=== PATIENT | male | born 1960 | race Caucasian/White ===

== ENCOUNTER 2016-12-28 09:26 | Emergency (ER) | payer OTHER ==
[~2016-12-28] VITALS: Ht 188 cm; Wt 78.8 kg
[2016-12-28 10:02] LABS: HEMATOCRIT 40.7 % (38.0-50.0); MCH 32.7 PG (29.0-34.0); MCHC 34.6 G/DL (30.0-36.0); MCV 94.4 FL (86-99); MEAN PLAT.VOLUME 10.6 uM^3 (9.0-12.4); PLATELET COUNT 218 K/uL (156-360); RBC DIS.WIDTH-CV 12.6 % (11.8-14.6); RED BLOOD COUNT 4.31 M/uL (4.00-5.50); WHITE BLOOD COUNT 9.7 K/uL (4.1-10.2)
[2016-12-28 10:14] LABS: CHLORIDE 101 mEq/L (99-109); POTASSIUM 4.3 mEq/L (3.7-5.4); SODIUM 138 mEq/L (136-147)
[2016-12-28 10:15] LABS: GLUCOSE 92 mg/dL (70-99)
[2016-12-28 10:17] LABS: ANION GAP 12 MEQ/L (2-14)
[2016-12-28 10:20] LABS: GFR ESTIMATE (CALCULATED) > 59 mL/min/; UREA NITROGEN (BUN) 8 mg/dL (9-23)
[2016-12-28 10:54] LABS: TROP-I INTERPRETATION NEGATIVE; TROPONIN-I < 0.01 ng/mL (0.0-0.30)
[2016-12-28] MEDS ORDERED: LEVAQUIN750 MG PO (12:17)
[2016-12-28] MEDS ORDERED: ZOFRAN4 MG PO (12:17)
[2016-12-28 12:42] VITALS: BP 151/87
== END 2016-12-28 12:43 | disposition home or self-care (01) ==
LOC: EME 09:26
DX: E86.0 Dehydration (principal); R05 Cough; R11.2 Nausea with vomiting, unspecified; R19.7 Diarrhea, unspecified; H92.09 Otalgia, unspecified ear; Z85.118 Personal history of other malignant neoplasm of bronchus and lung; F17.200 Nicotine dependence, unspecified, uncomplicated; Z88.0 Allergy status to penicillin
CPT/HCPCS: 71020; 80048; 83880; 84484; 85027; 99281; 99285; J1885; J2405; J7030